=== PATIENT | female | born 1950 | race Caucasian/White ===

== ENCOUNTER 2017-12-28 16:34 | Emergency (ER) | payer MEDICARE, BC ==
[2017-12-28] MEDS: IBUPROFEN 600 MG TAB PO (17:59)
[2017-12-28] MEDS: BENZOCAINE 20% 56 ML SPRAY TOP (18:16)
== END 2017-12-28 18:44 | disposition home or self-care (01) ==
LOC: FTE 16:34
DX: L03.012 Cellulitis of left finger (principal)
CPT/HCPCS: 10060; 99283-25